=== PATIENT | male | born 1965 | race Caucasian/White ===

== ENCOUNTER → 2020-06-28 | Outpatient (CLI) | payer OTHER | LOC: CAT 10:38 | PROVIDERS: ATTEND Internal Medicine Hematology & Oncology | DX: C76.0 Malignant neoplasm of head, face and neck (principal); I70.0 Atherosclerosis of aorta; R19.5 Other fecal abnormalities; M48.07 Spinal stenosis, lumbosacral region ==

== ENCOUNTER → 2020-07-10 | Outpatient (CLI) | payer OTHER | LOC: CAT 14:21 | PROVIDERS: ATTEND Internal Medicine Hematology & Oncology | DX: R22.1 Localized swelling, mass and lump, neck (principal); J34.1 Cyst and mucocele of nose and nasal sinus; J38.7 Other diseases of larynx; J34.89 Other specified disorders of nose and nasal sinuses; D21.0 Benign neoplasm of connective and other soft tissue of head, face and neck ==